=== PATIENT | female | born 1980 | race Caucasian/White ===

== ENCOUNTER 2024-11-22 08:43 | Day surgery (SDC) | payer OTHER ==
[2024-11-19 15:43] VITALS: BMI 22.8
[2024-11-22] MEDS ORDERED: ONDANSETRON 4 MG/2 ML VIAL ONE (10:43)
[2024-11-22 11:38] VITALS: TEMP 98
[2024-11-22 11:40] VITALS: BP 101/64; PULSE 55; RESP 19
== END 2024-11-22 11:55 | disposition home or self-care (01) ==
LOC: FASU-ENDO 08:43 → EDSEX 09:30 → FASU-ENDO 11:55
PROVIDERS: ATTEND Internal Medicine Gastroenterology
PROC: 0DBL8ZX Excision of Transverse Colon, Via Natural or Artificial Opening Endoscopic, Diagnostic (ICD-10-PCS; 2024-11-22)
PROC: 0DBN8ZX Excision of Sigmoid Colon, Via Natural or Artificial Opening Endoscopic, Diagnostic (ICD-10-PCS; 2024-11-22)
PROC: 0DBP8ZX Excision of Rectum, Via Natural or Artificial Opening Endoscopic, Diagnostic (ICD-10-PCS; 2024-11-22)
PROC: 0DBM8ZX Excision of Descending Colon, Via Natural or Artificial Opening Endoscopic, Diagnostic (ICD-10-PCS; 2024-11-22)
PROC: 0DBH8ZX Excision of Cecum, Via Natural or Artificial Opening Endoscopic, Diagnostic (ICD-10-PCS; 2024-11-22)
PROC: 0DBK8ZX Excision of Ascending Colon, Via Natural or Artificial Opening Endoscopic, Diagnostic (ICD-10-PCS; principal; 2024-11-22 10:50)
DX: Z12.11 Encounter for screening for malignant neoplasm of colon (principal); K52.89 Other specified noninfective gastroenteritis and colitis; K64.8 Other hemorrhoids; K64.9 Unspecified hemorrhoids; Z87.19 Personal history of other diseases of the digestive system
CPT/HCPCS: 81025; 88305-TC